=== PATIENT | female | born 1950 | race Caucasian/White ===

== ENCOUNTER → 2023-07-16 | Emergency (ER) | payer OTHER ==
[~2023-07-16] MED LIST: NA CHLORIDE 0.9% 1,000 ML ONE; ONDANSETRON 4 MG (ODT) TAB ONE
--- OUTSIDE RECORDS SUMMARY | 2023-07-16 20:54 | XMS REPORT | Clinical Summary ---
Author Name Unknown Organization [facility] Address [address] [place] [address] Care Team Providers Care Mica Paster Name Role Phone Jaden Jay MD Primary Care Provider Jose Chatman MD Unavailable [phone] Phong Leiva MD Unavailable [phone] Saran Phillips MD Unavailable Juan Huerta MD Unavailable Juan Garcia MD Unavailable [phone] Allergies Active Allergy Reactions Criticality Noted Date Comments Sulfamethoxazole-Trime thoprim Diarrhea,GI Intolerance 08/09/2018 Prednisone Other (See Comments) 08/09/2018 Hallucinations Medications Medication Sig Dispensed Refills Start Date End Date Status clopidogrel (PLAVIX) 75 mg tablet Take 1 tablet (75 mg) by mouth daily. For stent placement. 0 7 Active metoprolol succinate (TOPROL XL) 25 mg 24 hr tablet Take 1 tablet (25 mg) by mouth daily. For hypertension. 0 7 Active atorvastatin (LIPITOR) 80 mg tabletIndications:hy percholesterolemia Take 1 tablet (80 mg) by mouth at bedtime. For high cholesterol. 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 60 tablet 5 7 Active ezetimibe (ZETIA) 10 mg tabletIndications:hy percholesterolemia Take 1 tablet (10 mg) by mouth daily. 90 tablet 0 7 Active aspirin 81 mg chewable tablet Chew 1 tablet (81 mg) daily. 0 Active calcium carbonate/vitamin D3 (CALCIUM 600 + D,3, ORAL) Take 1 tablet by mouth daily. 1 tablet = calcium 600 mg + D3 500 units 0 Active cholecalciferol, vitamin D3, (VITAMIN D3) 5,000 units tab tablet Take 1 tablet (5,000 Units) by mouth daily. 0 Active hydroxyzine HCl (ATARAX) 10 mg tablet as needed. 0 2 Active isosorbide mononitrate (IMDUR) 30 mg 24 hr tablet daily. 0 2 Active tiZANidine (ZANAFLEX) 4 mg tablet as needed. 0 2 Active nitroglycerin (NITROSTAT) 0.4 mg SL tablet as needed. 0 1 Active FLUoxetine (PROzac) 20 mg capsule Take 1 capsule (20 mg) by mouth daily. 0 Active spironolactone (ALDACTONE) 25 mg tablet TAKE ONE (1) TABLET(S) BY MOUTH DAILY WITH FOOD NEEDED. 0 2 Active Promacta 25 mg tabletIndications:Im mune thrombocytopenic purpura Take 1 tablet (25 mg) by mouth every other day. TAKE 1 TABLET ON AN EMPTY STOMACH 1 HOUR BEFORE OR 2 HOURS AFTER MEAL. 90 tablet 3 3 Active eltrombopag (Promacta) 25 mg tabletIndications:Im mune thrombocytopenic purpura Take 1 tablet (25 mg) by mouth every other day. Administer on an empty stomach, 1 hour before or 2 hours after a meal. 90 tablet 3 3 Active levothyroxine (SYNTHROID, LEVOTHROID) 50 mcg tabletIndications:Ot her specified hypothyroidism TAKE ONE (1) TABLET(S) BY MOUTH ONCE A DAY. 90 tablet 0 3 Active gabapentin (NEURONTIN) 600 mg tablet Take 600 mg by mouth daily as needed (nerve pain). 0 023 Discontinued( erapy completed) LORazepam (ATIVAN) 0.5 mg tabletIndications:Di ffuse large B-cell lymphoma of lymph nodes of multiple sites Take 1 tablet (0.5 mg) by mouth nightly as needed for anxiety or sedation. 30 tablet 1 7 023 Discontinued( erapy completed) DULoxetine (CYMBALTA) 30 mg capsule Take 1 capsule by mouth daily. 0 0 023 Discontinued( erapy completed) Promacta 25 mg tabletIndications:Im mune thrombocytopenic purpura TAKE 1 TABLET DAILY ON AN EMPTY STOMACH 1 HOUR BEFORE OR 2 HOURS AFTER MEAL. 90 tablet 1 1 023 Discontinued(Re order) levothyroxine (SYNTHROID, LEVOTHROID) 50 mcg tabletIndications:Ot her specified hypothyroidism TAKE ONE (1) TABLET(S) BY MOUTH ONCE A DAY. 90 tablet 3 2 023 Discontinued potassium chloride (KLOR-CON) 10 mEq CR tablet daily. 0 2 023 Discontinued( erapy completed) Promacta 25 mg tabletIndications:Im mune thrombocytopenic purpura TAKE 1 TABLET DAILY ON AN EMPTY STOMACH 1 HOUR BEFORE OR 2 HOURS AFTER MEAL. 90 tablet 3 3 023 Discontinued(Re order) Promacta 25 mg tabletIndications:Im mune thrombocytopenic purpura TAKE 1 TABLET DAILY ON AN EMPTY STOMACH 1 HOUR BEFORE OR 2 HOURS AFTER MEAL. 90 tablet 3 3 023 Discontinued(Re order) Promacta 25 mg tabletIndications:Im mune thrombocytopenic purpura Take 1 tablet (25 mg) by mouth every other day. TAKE 1 TABLET ON AN EMPTY STOMACH 1 HOUR BEFORE OR 2 HOURS AFTER MEAL. 90 tablet 3 3 023 Discontinued(Re order) Promacta 25 mg tabletIndications:Im mune thrombocytopenic purpura Take 1 tablet (25 mg) by mouth every other day. TAKE 1 TABLET ON AN EMPTY STOMACH 1 HOUR BEFORE OR 2 HOURS AFTER MEAL. 90 tablet 3 3 023 Discontinued(Re order) levothyroxine (SYNTHROID, LEVOTHROID) 50 mcg tabletIndications:Ot her specified hypothyroidism TAKE ONE (1) TABLET(S) BY MOUTH ONCE A DAY. 90 tablet 1 3 023 Discontinued Active Problems Problem Noted Date Diagnosed Date Osteoporosis 06/23/2020 Coronary arteriosclerosis 02/05/2019 Immune thrombocytopenic purpura 08/09/2018 Thyroid nodule 09/06/2017 Hypothyroidism 09/06/2017 Non-diabetic hyperglycemia 09/06/2017 Mixed hyperlipidemia 10/07/2016 Insomnia due to medical condition 10/07/2016 Essential hypertension 10/07/2016 Thrombocytopenia 08/21/2016 Enterocolitis due to Clostridium difficile 08/20 Diffuse large B-cell lymphom a of lymph nodes of multiple sites 07/31/2016 Encounters Date Type Department Care Team Description 04/19/2023 Telephone [facility] [address] [place] [address], 6th [place] [address] Wendi Pierre APRN 04/18/2023 Orders Only Endocrine [facility] [address] [place] [address], [facility] [place] [address] Wendi Pierre, LEV Other specified hypothyroidism (Primary Dx) 04/15/2023 Refill [facility] [address] [place] [address], 6th [place] [address] Tea Rizvi APRN Other specified hypothyroidism 01/26/2023 Documentation [facility] - Hematology [address] [place] [address], 6th [place] [address] Sandra Garcia APRN 10/25/2022 4:30 PM CDT Telemedicine [facility] [address] [place] [address], 6th [place] [address] Sandra Garcia APRN Immune thrombocytopenic purpura (Primary Dx) 10/20/2022 Refill [facility] [address] [place] [address], 6th [place] [address] Rodolfo Rojas APRN Other specified hypothyroidism 10/12/2022 Documentation [facility] [address] [place] [address], 6th [place] [address] Sandra Garcia, MANDATE RETAIL SERVICE MERCHANDISER 09/29/2022 Documentation [facility] [address] [place] [address], 6th [place] [address] Sandra Garcia, MANDATE RETAIL SERVICE MERCHANDISER 09/26/2022 Documentation [facility] [address] [place] [address], 6th [place] [address] Sandra Garcia, MANDATE RETAIL SERVICE MERCHANDISER 08/25/2022 Documentation [facility] [address] [place] [address], 6th [place] [address] Sandra Garcia, MANDATE RETAIL SERVICE MERCHANDISER 08/25/2022 Orders Only [facility] H[facility]ology [address] [place] [address], [facility] [place] [address] Sandra Garcia APRN Immune thrombocytopenic purpura (Primary Dx) 08/21/2022 Refill [facility] Rheumatology [address] [place] [address], [facility] [place] [address] Isael Vega RN Immune thrombocytopenic purpura 08/17/2022 12:00 PM VIDEO GAME CREATOR Telemedicine [facility] [address] [place] [address], [facility] [place] [address] Sandra Garcia APRN Immune thrombocytopenic purpura (Primary Dx) 08/17/2022 Orders Only [facility] [address] [place] [address], [facility] [place] [address] Sandra Garcia APRN Immune thrombocytopenic purpura (Primary Dx) 08/15/2022 Refill [facility] [address] [place] [address], [facility] [place] [address] Anne De León, LARON Immune thrombocytopenic purpura 08/04/2022 10:30 AM VIDEO GAME CREATOR Follow[facility]Up [facility] [address] [place] [address], [address] [place] [id number] Jaden Jay MD 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 08/04/2022 Travel 08/03/2022 1:20 PM VIDEO GAME CREATOR Ancillary Procedure [facility] [address] [facility], 2nd [place] [address] Jaden Jay MD 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 08/03/2022 10:40 AM VIDEO GAME CREATOR Ancillary Procedure CT Imaging [address] [facility], 7th [place] [address] Jaden Jay MD 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 08/03/2022 10:00 AM VIDEO GAME CREATOR - 08/03/2022 11:59 PM VIDEO GAME CREATOR Hospital Encounter [facility] [address] [place] [address] Jaden Jay MD 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 Discharge Disposition: Home 08/03/2022 Travel 07/26/2022 Orders Only [facility] - Hematology [address] [place] [address], 6th [place] [address] Juan Garcia MD Immune thrombocytopenic purpura after 07/16/2022 Surgical History Surgery Date Site/Laterality Comments CHOLECYSTECTOMY PARTIAL HYSTERECTOMY CORONARY ANGIOPLASTY WITH STENT PLACEMENT VA SIGMOIDOSCOPY FLX W/BIOPS Y SINGLE/MULTIPLE 08/22/2016 Anus/N/A Procedure: FLEXIBLE SIGMOIDOSCOPY WITH BIOPSY; Surgeon: Dorita Lauren MD; Location: MAIN ENDOSCOPY; Service: GASTROENTEROLOGY Medical History Medical History Date Comments Coronary artery disease due to calcified coronar y lesion Hypertension Hypothyroidism Psoriasis 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 07/31/2016 Mitral valve prolapse Steatosis of liver Family History Medical History Relation Name Comments Pancreatic cancer Father Heart failure Mother Throat cancer Paternal Aunt Lung cancer Paternal Uncle Breast cancer Sister Relation Name Status Comments Father Mother Paternal Aunt Paternal Uncle Sister Social History Tobacco Use Types Packs/Day Years Used Date Smoking Tobacco: Former Cigarettes 1 35 Q uit: 2005 Smokeless Tobacco: Never Alcohol Use Standard Drinks/Week Comments No 0 (1 standard drink = 0.6 oz pur e alcohol) Sex and Gender Information Value Date Recorded Sex Assigned at Female 01/05/2021 1:15 PM CDT Gender Identity Not on file Sexual Orientation Straight 01/05/2021 1: 15 PM CDT Job Start Date Occupation Industry Not on file Not on file Not on file Obstetrics History Para Term AB IAB SAB Ectopic Multiple Livin g Live Births 3 3 3 3 Date Outcome GA Total Labor Labor/2nd/3rd Weight Sex Delivery Anes PTL Ruchi A1 A5 Name Cl in Term Term Term Last Filed Vital Signs Vital Sign Reading Time Taken Comments Blood Pressure 137/65 08/04/2022 10:34 AM VIDEO GAME CREATOR Pulse 70 08/04/2022 10:34 AM VIDEO GAME CREATOR Temperature 36.8 C (98.2 F) 08/04/2022 10:[address] Respiratory Rate 16 08/04/2022 10:34 AM VIDEO GAME CREATOR Oxygen Saturation 100% 08/04/2022 10:34 AM VIDEO GAME CREATOR Inhaled Oxygen Concentration - - Weight 56.8 kg (125 lb 3.5 oz) 08/04/2022 10:28 AM VIDEO GAME CREATOR Height - - Body Mass Index 23.19 09/29/2019 2:16 PM CDT Plan of Treatment Upcoming Encounters Date Type Department Care Team Description 08/03/2023 8:45 AM VIDEO GAME CREATOR Appointment [facility] [address] [place] [address] aJz Pitts PA [address] [place] [address] 08/03/2023 9:05 AM VIDEO GAME CREATOR Ancillary Procedure [facility] [address] [place] [address], 2nd [place] [address] Jaz Pitts PA [facility] [place] [address] 08/03/2023 11:00 AM VIDEO GAME CREATOR Ancillary Procedure Diagnostic Center [address] [place] [address], 2nd [place] [address] Jaz Pitts PA [address] [place] [address] 08/07/2023 9:30 AM VIDEO GAME CREATOR Consult MD [facility] [id number] [facility] 3rd Floor [place], [place] [id number] Jaz Pitts PA [address] [place] [address] Health Maintenance Due Date Last Done Comments COVID-19 Vaccination (#1) 1950 Medical Devices Implanted Type Area Barbed Wire Machine Operator Device Identifier Shelf Expiration Date Model / Serial / Lot Stent Procedures Procedure Name Priority Date/Time Associated Diagnosis Comments MAMMO DIGITAL SCREENING BILATERAL Routine 08/03/2022 1:03 PM VIDEO GAME CREATOR 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 CT CHEST ABDOMEN PELVIS W CONTRAST LYMPHOMA Routine 08/03/2022 11:32 AM VIDEO GAME CREATOR 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 CT NECK W CONTRAST LYMPHOMA Routine 08/03/2022 11:32 AM VIDEO GAME CREATOR 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 TMP INTERPRETATION ANTIBODY SCREEN NEGATIVE Routine 08/03/2022 10:22 AM VIDEO GAME CREATOR CLOT EXPIRATION DATE Routine 08/03/2022 10:22 AM VIDEO GAME CREATOR ANTIBODY SCREEN Routine 08/03/2022 10:22 AM VIDEO GAME CREATOR 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 ABORH Routine 08/03/2022 10:22 AM VIDEO GAME CREATOR 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 .GLOMERULAR FILTRATION RATE Routine 08/03/2022 10:22 AM VIDEO GAME CREATOR 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 SERUM CREATININE Routine 08/03/2022 10:2 2 AM VIDEO GAME CREATOR 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 DIFFERENTIAL Routine 08/03/2022 10:22 AM VIDEO GAME CREATOR 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 .CBC Routine 08/03/2022 10:22 AM VIDEO GAME CREATOR 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 THYROID STIMULATING HORMONE Routine 08/03/2022 10:22 AM VIDEO GAME CREATOR 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 FREE THYROXINE Routine 08/03/2022 10:22 AM VIDEO GAME CREATOR 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 VITAMIN D 25 HYDROXY LEVEL Routine 08/03/2022 10:22 AM VIDEO GAME CREATOR 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 ELECTROLYTE PANEL Routine 08/03/2022 10: 22 AM VIDEO GAME CREATOR 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 ASPARTATE AMINOTRANSFERASE Routine 08/03/2022 10:22 AM VIDEO GAME CREATOR 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 MAGNESIUM LEVEL Routine 08/03/2022 10:22 AM VIDEO GAME CREATOR 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 ALANINE AMINOTRANSFERASE Routine 023 10:22 AM VIDEO GAME CREATOR 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 LACTATE DEHYDROGENASE Routine 08/03/2022 10:22 AM VIDEO GAME CREATOR 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 ALKALINE PHOSPHATASE Routine 08/03/2022 10:22 AM VIDEO GAME CREATOR 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 FRACTIONATED BILIRUBIN Routine 10:22 AM VIDEO GAME CREATOR 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 URIC ACID Routine 08/03/2022 10:22 AM VIDEO GAME CREATOR 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 CREATININE Routine 08/03/2022 10:22 AM VIDEO GAME CREATOR 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 BLOOD UREA NITROGEN Routine 08/03/2022 1 0:22 AM VIDEO GAME CREATOR 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 GLUCOSE, RANDOM Routine 08/03/2022 10:22 AM VIDEO GAME CREATOR 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 PHOSPHORUS LEVEL Routine 08/03/2022 10:2 2 AM VIDEO GAME CREATOR 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 CALCIUM LEVEL Routine 08/03/2022 10:22 AM VIDEO GAME CREATOR 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 ALBUMIN LEVEL Routine 08/03/2022 10:22 AM VIDEO GAME CREATOR 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 TOTAL PROTEIN Routine 08/03/2022 10:22 AM VIDEO GAME CREATOR 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 Follow-up mammogram in 1 year is recommended. BI-RADS Category 1: Negative Narrative 08/14/2022 1:44 PM VIDEO GAME CREATOR CLINICAL INDICATION: Patient is a 72 year old female and is seen for screening. MAMMO DIGITAL SCREENING BILATERAL Digital Mammogram evaluated with Computer Aided Detection (CAD). COMPARISON: No prior imaging studies are available for comparison. FINDINGS: The breasts are almost entirely fatty. No dominant mass, distortion, or suspicious calcifications are identified. Procedure Note Marianne Carolina MD - 08/14/2022 CLINICAL INDICATION: Patient is a 72 year old female and is seen for screening. MAMMO DIGITAL SCREENING BILATERAL Digital Mammogram evaluated with Computer Aided Detection (CAD). COMPARISON: No prior imaging studies are available for comparison. FINDINGS: The breasts are almost entirely fatty. No dominant mass, distortion, or suspicious calcifications areidentified. IMPRESSION: There is no mammographic evidence of malignancy. Follow-up mammogram in 1 year is recommended. BI-RADS Category 1: Negative Jaden Jay MD IMG MAMMOGRAPHY [facility] * CT Chest Abdomen Pelvis with Contrast Lymphoma (08/03/2022 11:32 AM VIDEO GAME CREATOR) Anatomical Region Laterality Modality Chest, Abdomen, Pelvis Computed Tomography 08/03/2022 12:3 0 PM VIDEO GAME CREATOR Impressions 08/03/2022 12:53 PM VIDEO GAME CREATOR No new progressive lymphadenopathy identified in the chest, abdomen or pelvis. Heavily calcified coronary arteries and severe atherosclerosis of the aorta and branch vessels. 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 Findings: Chest: Lungs appear stable in comparison to prior study no suspicious new pulmonary nodules atelectasis lung bases. Stable scattered punctate pulmonary nodules series 303 image 84. Atelectasis lung bases. No significant new mediastinal, hilar or axillary lymphadenopathy. Heavily calcified coronary arteries. Abdomen pelvis: Stable appearance of the liver, no suspicious new focal liver lesions. Mild and hepatic bile duct dilation gallbladder is surgically absent. The pancreas, spleen, bilateral adrenal glands and kidneys are unremarkable no hydronephrosis. No significant mesenteric or retroperitoneal lymphadenopathy. Severe atherosclerosis of the aorta and branch vessels. No significant pelvic or inguinal lymphadenopathy. Uterus is surgically absent. No evidence of bowel obstruction. No suspicious new osseous lesions. Stable mild vertebral body compression deformity lower thoracic spine. Procedure Note Jorge Dhillon MD - 08/03/2022 Examination: CT CHEST ABDOMEN PELVIS W CONTRAST LYMPHOMA, 08/03/2022 11:32AM Clinical History: Diffuse large B-cell lymphoma of lymph nodes of multiplesites Indication: restaging for lymphoma Comparison: 08/04/2021 Technique: CT of the chest, abdomen, and pelvis was performed withintravenous contrast. Findings: Chest: Lungs appear stable in comparison to prior study no suspicious newpulmonary nodules atelectasis lung bases. Stable scattered punctate pulmonary nodules series 303 image 84. Atelectasis lung bases. No significant new mediastinal, hilar or axillary lymphadenopathy. Heavily calcified coronary arteries. Abdomen pelvis: Stable appearance of the liver, no suspicious new focal liver lesions.Mild and hepatic bile duct dilation gallbladder is surgically absent. Thepancreas, spleen, bilateral adrenal glands and kidneys are unremarkable nohydronephrosis. No significant mesenteric or retroperitoneal lymphadenopathy. Severe atherosclerosis of the aorta and branch vessels. No significant pelvic or inguinal lymphadenopathy. Uterus is surgically absent. No evidence of bowel obstruction. No suspicious new osseous lesions.Stable mild vertebral body compression deformity lower thoracic spine. IMPRESSION: No new progressive lymphadenopathy identified in the chest, abdomen orpelvis. Heavily calcified coronary arteries and severe atherosclerosis of theaorta and branch vessels. Jaden Jay MD [facility] CT ORDERABLES * CT Neck with Contrast Lymphoma (08/03/2022 11:32 AM VIDEO GAME CREATOR) Anatomical Region Laterality Modality Neck Computed Tomogra phy 08/03/2022 12:1 0 PM VIDEO GAME CREATOR Impressions 08/03/2022 12:13 PM VIDEO GAME CREATOR No cervical lymphadenopathy. 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 Technique: CT of the Neck with Contrast. Findings: Please see the separately dictated report on the CT of the chest for upper thorax findings. There is no cervical lymphadenopathy. The visualized intracranial structures are without gross abnormality. The paranasal sinuses are unremarkable. There are mild calcified atherosclerotic changes involving the carotid bifurcations. There are multilevel degenerative changes of the visualized spine. Procedure Note Timothy Joseph MD - 08/03/2022 FULL RESULT: Examination: CT NECK W CONTRAST LYMPHOMA on 08/03/2022 11:32 AM Clinical History: Diffuse large B-cell lymphoma of lymph nodes of multiplesites Indication: restaging scans Comparison: CT neck August 04, 2021. Technique: CT of the Neck with Contrast. Findings: Please see the separately dictated report on the CT of the chest for upperthorax findings. There is no cervical lymphadenopathy. The visualized intracranial structures are without gross abnormality. The paranasal sinuses are unremarkable. There are mild calcified atherosclerotic changes involving the carotidbifurcations. There are multilevel degenerative changes of the visualized spine. IMPRESSION: No cervical lymphadenopathy. Jaden Jay MD IMG CT ORDERABLES * Glucose, Random (08/03/2022 10:22 AM VIDEO GAME CREATOR) Glucose Random 110 70 - 199 mg/dL [facility] Comment: Effective 02/16/16, the glucose reference intervals have been updated based on [place] [employer] guidelines (Standards of Medical Care in Diabetes 2016. Diabetes Care 2016; 39: S13-S22) Fasting blood glucose: Normal: 70-99 mg/dL Impaired fasting glucose (increased risk for diabetes or pre-diabetes): 100-125 mg/dL Diabetes mellitus: >/= 126 mg/dL Random blood glucose: Normal: 70-199 mg/dL Note: Random glucose >100 mg/dL is associated with increased risk for diabetes Testing Performed at [facility], [address] [place] [address], [address], [place] [address] Blood 08/03/2022 10:2 2 AM VIDEO GAME CREATOR 08/03/2022 10:33 AM VIDEO GAME CREATOR Narrative [facility] - 08/03/2022 11:03 AM VIDEO GAME CREATOR Coming from out of town - please try to bundle appts Jaden Jay MD LAB BLOOD ORDERABLES [address] [place] [address] * (ABNORMAL) .Serum Creatinine (08/03/2022 10:22 AM VIDEO GAME CREATOR) Creatinine 1.11(H) 0.51 - 0.95 mg/dL [facility] Comment:Testing Performed at [facility], [address] [place] [address], [address], [place] [address] Blood 08/03/2022 10:2 2 AM VIDEO GAME CREATOR 08/03/2022 10:33 AM VIDEO GAME CREATOR Narrative [facility] - 08/03/2022 11:03 AM VIDEO GAME CREATOR Coming from out of town - please try to bundle appts Jaden Jay MD LAB BLOOD ORDERABLES [facility] [address] [place] [address]. [address] [place] [address] * .CBC (08/03/2022 10:22 AM VIDEO GAME CREATOR) [facility] WBC 8.0 4.0 - 11.0 K/uL [facility] RBC 4.25 4.00 - 5.50 M/uL [facility] Hgb 12.4 12.0 - 16.0 gm/dL [facility] Comment:As part of CBC or as an individual orderable testing performed at [facility] Domestic [employer] [facility], [address] [place] [address], [address], [place] [address] Hct 38.6 37.0 - 47.0 % [facility] Comment:As part of CBC or as an individual orderable testing performed at [facility], [address] [place] [address], [address], [place] [address] MCV 91 82 - 98 fL [facility] MCH 29.2 27.0 - 31.0 pg [facility] MCHC 32.1 31.0 - 36.0 gm/dL [facility] RDW-SD 46.1 35.1 - 46.3 fL [facility] RDW-CV 13.9 12.0 - 15.5 % [facility] Platelet count 255 140 - 440 K/uL [facility] Comment:As part of CBC or as an individual orderable testing performed at [facility] Domestic [employer] [facility], [facility], [address], [place] [address] MPV 9.3 4.0 - 10.4 fL [facility] INRBC 0.0 <=0.0 % [facility] Comment: The INRBC (instrument NRBC) value reflects the enumeration of nucleated red blood cells contained in a 200uL sample of whole blood analyzed by the instrument. This value may differ from the NRBC value reported in a manual differential, which is based on a 100 cell differential. As part of CBC testing performed at [facility] Lab [employer] [address] [facility], [address], [place] [address] Blood 08/03/2022 10:2 2 AM VIDEO GAME CREATOR 08/03/2022 10:30 AM VIDEO GAME CREATOR Narrative [facility] - 08/03/2022 10:36 AM VIDEO GAME CREATOR Coming from out of town - please try to bundle appts Jaden Jay MD LAB BLOOD ORDERABLES [facility] [address] [facility] [place] [address] * Clot Expiration Date (08/03/2022 10:22 AM VIDEO GAME CREATOR) T & S Expiration 08/06/2022 [facility] Blood 08/03/2022 10:2 2 AM VIDEO GAME CREATOR 08/03/2022 11:19 AM VIDEO GAME CREATOR Jaden Jay MD BLOOD BANK TEST ORDE RABLES [facility] Unless otherwise noted, all lab tests performed by: Division of Pathology and Laboratory Medicine [facility] [place] [address] * (ABNORMAL) Glomerular Filtration Rate (08/03/2022 10:22 AM VIDEO GAME CREATOR) eGFR 53(L) >=60 mL/min/1.7 3 sq. m [facility] Comment: The eGFRcr is calculated with the 2020 CKD-EPI creatinine equation using creatinine, patient's age, and sex for adults 18 years of age and older. Other factors, especially muscle mass, may affect accuracy and need to be considered. According to the Kidney Disease: Improving Global Outcomes (KDIGO) CKD Work Group 2012 Clinical Practice Guideline, chronic kidney disease (CKD) is defined as the abnormalities of kidney structure or function, present for more than 3 months, with implications for health. CKD should be classified by cause, GFR category, and albuminuria category. KDIGO guidelines provide the following GFR categories Stage Description GFR mL/min/1.73 m2 G1* Normal or high >= 90 G2* Mildly decreased 60-89 G3a Mildly to moderately decreased 45-59 G3b Moderately to severely decreased 30-44 G4 Severely decreased 15-29 G5 Kidney failure <15 *In the absence of evidence of kidney damage, neither G1 nor G2 fulfill criteria for CKD. Testing Performed at [facility], [address] [place] [address], [address], [place] [address] Blood 08/03/2022 10:2 2 AM VIDEO GAME CREATOR 08/03/2022 10:33 AM VIDEO GAME CREATOR Narrative [facility] - 08/03/2022 11:03 AM VIDEO GAME CREATOR Coming from out of town - please try to bundle appts Jaden Jay MD LAB BLOOD ORDERABLES [address] [place] [address] * Fractionated Bilirubin (08/03/2022 10:22 AM VIDEO GAME CREATOR) [facility] Bili Total 0.6 <=1.2 mg/dL [facility] Comment: Indocyanine Green (ICG) may cause falsely elevated bilirubin results. Total and direct bilirubin must not be measured from samples containing indocyanine green. False elevation of total bilirubin can be seen in patients with IgG concentrations above 28 g/L. Testing Performed at [facility], [address] [place] [address], [address], [place] [address] Bili Direct <0.2 <=0.3 mg/dL [facility] Comment: Indocyanine Green (ICG) may cause falsely elevated bilirubin results. Total and direct bilirubin must not be measured from samples containing indocyanine green. Testing Performed at [facility], [address] [place] [address], [address], [place] [address] Bili Indirect See Note 0.0 - 0.9 mg/dL [facility] Comment: Unable to calculate Indirect Bilirubin result due to some parameters are outside reportable range Testing Performed at [facility], [address] [place] [address], [address], [place] [address] Blood 08/03/2022 10:2 2 AM VIDEO GAME CREATOR 08/03/2022 10:33 AM VIDEO GAME CREATOR Narrative [facility] - 08/03/2022 11:03 AM VIDEO GAME CREATOR Coming from out of town - please try to bundle appts Jaden Jay MD LAB BLOOD ORDERABLES Performing Organization Address City/[facility]/ZIP Co de Phone Number [facility] [address] [facility] [place] [address] * TMP Interpretation Antibody Screen Negative (08/03/2022 10:22 AM VIDEO GAME CREATOR) TMP Auto Neg ABSC Interp At the present time, patient plasma shows no evidence of RBC alloantibodi es. [facility] Comment: IDANIA OJEDA MD - [id number] Dictated by: MD Johan VILLALBA [id number] Dictated Date/Time: 08.04.2022 10:10 AM VIDEO GAME CREATOR Transcribed Date/Time: 08.04.2022 10:10 AM VIDEO GAME CREATOR Electronically Signed By: IDANIA OJEDA MD - [id number] on 08.04.2022 10:10 AM Blood 08/03/2022 10:2 2 AM VIDEO GAME CREATOR 08/03/2022 11:19 AM VIDEO GAME CREATOR Jaden Jay MD BLOOD BANK TEST ORDTacos PRADHAN [facility] Unless otherwise noted, all lab tests performed by: Division of Pathology and Laboratory Medicine [address] [place] [id number] * ABORh (08/03/2022 10:22 AM VIDEO GAME CREATOR) Pathologist [facility] ABORh. A POS AL MD FORDE [facility] Blood 08/03/2022 10:2 2 AM VIDEO GAME CREATOR 08/03/2022 11:19 AM VIDEO GAME CREATOR Narrative [facility] - 08/03/2022 2:25 PM VIDEO GAME CREATOR Coming from out of town - please try to bundle appts Jaden Jay MD BLOOD BANK TEST ORDE RABCIARA Performing Organization Address [facility] Co de Phone Number [facility] Unless otherwise noted, all lab tests performed by: Division of Pathology and Laboratory Medicine [address] [place] [address] * Vitamin D 25OH (08/03/2022 10:22 AM VIDEO GAME CREATOR) [facility] Vitamin D 25 OH 81 30 - 100 ng/mL [facility] Comment: Reference Range: Deficiency: <10 ng/mL Insufficiency: 10-29 ng/mL Sufficiency: 30-100 ng/mL Potential toxicity: >100 ng/mL Blood 08/03/2022 10:2 2 AM VIDEO GAME CREATOR 08/03/2022 11:48 AM VIDEO GAME CREATOR Narrative [facility] - 08/03/2022 12:32 PM VIDEO GAME CREATOR Coming from out of town - please try to bundle appts Jaden Jay MD LAB BLOOD ORDERABLES Performing Organization Address [facility] Co de Phone Number [facility] Unless otherwise noted, all lab tests performed by: Division of Pathology and Laboratory Medicine [address] [place] [address] * Differential (08/03/2022 10:22 AM VIDEO GAME CREATOR) [facility] Neutrophil % 62.1 42.0 - 66.0 % [facility] Comment:As part of Different ial performed at [facility], [address] [place] [address], [address], [place] [address] Lymphocyte % 27.4 24.0 - 44.0 % [facility] Monocyte % 6.9 2.0 - 7.0 % [facility] Eosinophil % 2.6 1.0 - 4.0 % [facility] Basophil % 0.6 0.0 - 1.0 % [facility] IGRE % 0.4 0.0 - 0.4 % [facility] Comment: IGRE % count includes Metamyelocytes, Myelocytes, and Promyelocytes. As part of Differential performed at [facility], [address] [place] [address], [address], [place] [address] Neutrophil Abs 4.94 1.70 - 7.30 K/uL [facility] Lymphocyte Abs 2.18 1.00 - 4.80 K/uL [facility] Monocyte Abs 0.55 0.08 - 0.70 K/uL [facility] Eosinophil Abs 0.21 0.04 - 0.40 K/uL [facility] Basophil Abs 0.05 0.00 - 0.10 K/uL [facility] IG Abs 0.03 0.00 - 0.04 K/uL [facility] Blood 08/03/2022 10:2 2 AM VIDEO GAME CREATOR 08/03/2022 10:30 AM VIDEO GAME CREATOR Narrative [facility] - 08/03/2022 10:36 AM VIDEO GAME CREATOR Coming from out of town - please try to bundle appts Jaden Jay MD LAB BLOOD ORDERABLES [address] [place] [address] * Antibody Screen (08/03/2022 10:22 AM VIDEO GAME CREATOR) Pathologist [facility] ABSC. Negative ABSC [facility] Blood 08/03/2022 10:2 2 AM VIDEO GAME CREATOR 08/03/2022 11:19 AM VIDEO GAME CREATOR Narrative [facility] - 08/03/2022 2:25 PM VIDEO GAME CREATOR Coming from out of town - please try to bundle appts Jaden Jay MD BLOOD BANK TEST ORDE RABLES [facility] Unless otherwise noted, all lab tests performed by: Division of Pathology and Laboratory Medicine [address] [place] [id number] * (ABNORMAL) Uric Acid (08/03/2022 10:22 AM VIDEO GAME CREATOR) Uric Acid 6.9(H) 2.4 - 5.7 mg/dL [facility] Comment:Testing Performed at [facility] Lab Domestic [employer]er Bldg, [address] [facility], [address], [place] [address] Blood 08/03/2022 10:2 2 AM VIDEO GAME CREATOR 08/03/2022 10:33 AM VIDEO GAME CREATOR Narrative [facility] - 08/03/2022 11:03 AM VIDEO GAME CREATOR Coming from out of town - please try to bundle appts Jaden Jay MD LAB BLOOD ORDERABLES [facility] [address] [place] [address]. [address] [place] [address] * BUN (08/03/2022 10:22 AM VIDEO GAME CREATOR) BUN 18 6 - 23 mg/dL [facility] Comment:Testing Performed at [facility] Lab Domestic [employer] [facility], [address] [place] [address], [address], [place] [address] Blood 08/03/2022 10:2 2 AM VIDEO GAME CREATOR 08/03/2022 10:33 AM VIDEO GAME CREATOR Narrative [facility] - 08/03/2022 11:03 AM VIDEO GAME CREATOR Coming from out of town - please try to bundle appts Jaden Jay MD LAB BLOOD ORDERABLES Performing Organization Address City/[facility]/ZIP Co de Phone Number [facility] [address] [place] [address]. [address] [place] [address] * Alanine Aminotransferase (08/03/2022 10:22 AM VIDEO GAME CREATOR) ALT 28 <=33 U/L [facility] Comment:Testing Performed at [facility] Lab Domestic [employer]er [facility], [address] [place] [address], [address], [place] [address] Blood 08/03/2022 10:2 2 AM VIDEO GAME CREATOR 08/03/2022 10:33 AM VIDEO GAME CREATOR Narrative [facility] - 08/03/2022 11:03 AM VIDEO GAME CREATOR Coming from out of town - please try to bundle appts Jaden Jay MD LAB BLOOD ORDERABLES [facility] [address] [place] [address]. [address] [place] [address] * Aspartate Aminotransferase (08/03/2022 10:22 AM VIDEO GAME CREATOR) AST 26 <=32 U/L [facility] Comment:Testing Performed at [facility] Domestic Fre[employer]er [facility], [address] [place] [address], [address], [place] [address] Blood 08/03/2022 10:2 2 AM VIDEO GAME CREATOR 08/03/2022 10:33 AM VIDEO GAME CREATOR Narrative [facility] - 08/03/2022 11:03 AM VIDEO GAME CREATOR Coming from out of town - please try to bundle appts Jaden Jay MD LAB BLOOD ORDERABLES [facility] [address] [place] [address]. [address] [place] [address] * TSH (08/03/2022 10:22 AM VIDEO GAME CREATOR) TSH 2.66 0.27 - 4.20 mcunit/mL [facility] Comment: Note: New Methodology and Reference Range change effective 11/08/2017 at 1400 Testing Performed at [facility] Domestic [employer] [facility], [address] [place] [address], [address], [place] [address] Blood 08/03/2022 10:2 2 AM VIDEO GAME CREATOR 08/03/2022 10:33 AM VIDEO GAME CREATOR Narrative [facility] - 08/03/2022 11:22 AM VIDEO GAME CREATOR Coming from out of town - please try to bundle appts Jaden Jay MD LAB BLOOD ORDERABLES Performing Organization Address [facility]/ZIP Co de Phone Number [address] [place] [address] * Free T4 (08/03/2022 10:22 AM VIDEO GAME CREATOR) T4 Free 1.27 0.93 - 1.70 ng/dL [facility] Comment:Testing Performed at [facility] Domestic [employer] [facility], [address] [place] [address], [address], [place] [address] Blood 08/03/2022 10:2 2 AM VIDEO GAME CREATOR 08/03/2022 10:33 AM VIDEO GAME CREATOR Narrative [facility] - 08/03/2022 11:22 AM VIDEO GAME CREATOR Coming from out of town - please try to bundle appts Jaden Jay MD LAB BLOOD ORDERABLES [facility] [address] [place] [address]. [address] [place] [address] * Total Protein (08/03/2022 10:22 AM VIDEO GAME CREATOR) Total Protein 7.5 6.4 - 8.3 g/dL [facility] Comment:Testing Performed at [facility] Lab Domestic [employer] [facility], [address] [place] [address], [address], [place] [address] Blood 08/03/2022 10:2 2 AM VIDEO GAME CREATOR 08/03/2022 10:33 AM VIDEO GAME CREATOR Narrative [facility] - 08/03/2022 11:03 AM VIDEO GAME CREATOR Coming from out of town - please try to bundle appts Jaden Jay MD LAB BLOOD ORDERABLES [facility] [address] [place] [address]. [address] [place] [address] * Phosphorus Level (08/03/2022 10:22 AM VIDEO GAME CREATOR) Phosphorus 3.7 2.5 - 4.5 mg/dL [facility] Comment:Testing Performed at [facility] Domestic [employer]er [facility], [address] [place] [address], [address], [place] [address] Blood 08/03/2022 10:2 2 AM VIDEO GAME CREATOR 08/03/2022 10:33 AM VIDEO GAME CREATOR [facility] [place] - 08/03/2022 11:03 AM VIDEO GAME CREATOR Coming from out of town - please try to bundle appts Jaden Jay MD LAB BLOOD ORDERABLES [address] [place] [address] * Alkaline Phosphatase (08/03/2022 10:22 AM VIDEO GAME CREATOR) Alk Phos 80 35 - 104 U/L [facility] Comment:Testing Performed at [facility] Lab Domestic [employer] [facility], [address] [place] [address], [address], [place] [address] Blood 08/03/2022 10:2 2 AM VIDEO GAME CREATOR 08/03/2022 10:33 AM VIDEO GAME CREATOR Narrative [facility] - 08/03/2022 11:03 AM VIDEO GAME CREATOR Coming from out of town - please try to bundle appts Jaden Jay MD LAB BLOOD ORDERABLES Performing Organization Address City/[facility]/ZIP Co de Phone Number [facility] [address] [place] [address]. [address] [place] [address] * Magnesium Level (08/03/2022 10:22 AM VIDEO GAME CREATOR) Magnesium 2.0 1.6 - 2.6 mg/dL [facility] Comment:Testing Performed at [facility] Domestic Freight [employer]er Bldg, [address] [place] [address], [address], [place] [address] Blood 08/03/2022 10:2 2 AM VIDEO GAME CREATOR 08/03/2022 10:33 AM VIDEO GAME CREATOR Narrative [facility] - 08/03/2022 11:03 AM VIDEO GAME CREATOR Coming from out of town - please try to bundle appts Jaden Jay MD LAB BLOOD ORDERABLES Performing Organization Address [facility] Co de Phone Number [address] [place] [address] * (ABNORMAL) LDH (08/03/2022 10:22 AM VIDEO GAME CREATOR) Pathologist [facility] LDH 218(H) 135 - 214 U/L [facility] Comment: Results greater than 1651 U/L may not be reliable due to matrix effect with extended dilution as it exceeds the librarian special collections s recommended limit. Caution should be exercised when interpreting such values and done in conjunction with clinical context. Testing Performed at [facility] Domestic [employer] [facility], [address] [place] [address], [address], [place] [address] Blood 08/03/2022 10:2 2 AM VIDEO GAME CREATOR 08/03/2022 10:59 AM VIDEO GAME CREATOR Narrative [facility] - 08/03/2022 11:26 AM VIDEO GAME CREATOR Coming from out of town - please try to bundle appts Jaden Jay MD LAB BLOOD ORDERABLES Performing Organization Address City/[facility]/ZIP Co de Phone Number [address] [place] [address] * Calcium Level (08/03/2022 10:22 AM VIDEO GAME CREATOR) Calcium Lvl 10.1 8.4 - 10.2 mg/dL [facility] Comment:Testing Performed at [facility] Domestic [employer] [facility], [address] [facility], [address], [place] [address] Blood 08/03/2022 10:2 2 AM VIDEO GAME CREATOR 08/03/2022 10:33 AM VIDEO GAME CREATOR Narrative [facility] - 08/03/2022 11:03 AM VIDEO GAME CREATOR Coming from out of town - please try to bundle appts Jaden Jay MD LAB BLOOD ORDERABLES [facility] [address] [facility] [place] [address] * Albumin Level (08/03/2022 10:22 AM VIDEO GAME CREATOR) Albumin Lvl 4.6 3.5 - 5.2 gm/dL [facility] Comment:Testing Performed at [facility] Domestic Fre[employer]er [facility], [address] [facility], [address], [place] [address] Blood 08/03/2022 10:2 2 AM VIDEO GAME CREATOR 08/03/2022 10:33 AM VIDEO GAME CREATOR Narrative [facility] - 08/03/2022 11:03 AM VIDEO GAME CREATOR Coming from out of town - please try to bundle appts Jaden Jay MD LAB BLOOD ORDERABLES [facility] [address] [place] [address]. [address] [place] [address] * (ABNORMAL) Electrolyte Panel (08/03/2022 10:22 AM VIDEO GAME CREATOR) Sodium Lvl 140 136 - 145 mEq/L [facility] Comment:Testing Performed at [facility] Domestic [employer] [facility], [address] [facility], [address], [place] [address] Potassium Lvl 4.3 3.5 - 5.1 mEq/L [facility] Comment:Testing Performed at [facility] Domestic Fre[employer]er [facility], [address] [place] [address], [address], [place] [address] Chloride 109(H) 98 - 107 mEq/L [facility] Comment:Testing Performed at [facility] Domestic [employer] Bldg, [address], [address], [place] [address] CO2 22 22 - 29 mEq/L [facility] Comment:Testing Performed at [facility] Domestic [employer] Bldg, [address], [address], [place] [address] Anion Gap 9 4 - 14 mEq/L [facility] Comment:Testing Performed at [facility] Domestic [employer] Bldg, [address], [address], [place] [address] Blood 08/03/2022 10:2 2 AM VIDEO GAME CREATOR 08/03/2022 10:33 AM VIDEO GAME CREATOR Narrative [facility] - 08/03/2022 11:03 AM VIDEO GAME CREATOR Coming from out of town - please try to bundle appts Jaden Jay MD LAB BLOOD ORDERABLES [facility] [address] [facility] [place] [address] after 07/16/2022 Advance Directives Latest Code Status on File Code Status Date Activated Date Inactivated Comments Full Code 02/05/2019 9:09 PM 02/07/2019 5:41 PM Code Status History Code Status Date Activated Date Inactivated Comments Full Code 11/29/2016 7:38 PM 12/02/2016 11:28 AM Full Code 11/08/2016 9:51 AM 11/11/2016 5:44 PM Full Code 10/18/2016 11:16 AM 10/21/2016 1:39 AM Full Code 10/05/2016 9:09 PM 10/10/2016 3:58 PM Care Teams Mica Paster Relationship Specialty Start Date End Date Jaden Jay MD [address] [place] [id number] PCP - General Lymphoma and Myeloma 07/26/18 Jose Chatman MD [address] [facility] [address] [place] [address] PCP - External Follow Up A Cardiology 08/11/20 Phong Leiva MD [address] [place] [id number] PCP - External Referring Family Practice 08/11/20 Saran Phillips MD [address] [place] [id number] Consulting Physician Endocrinology 09/06/17 Juan Huerta MD [address] [place] [address] Consulting Physician Cardiology 07/18/16 Juan Garcia MD [address] [place] [id number] Consulting Physician Hematology 08/09/18
[2023-07-16 21:40] LABS: Absolute Lymphocytes (CBC) 1.7 K/uL (0.7-4.9); Hematocrit 34.7 % (36.0-45.0); Lymphocytes % 21.9 % (15.3-44.8); MCV 85.5 fL (80-100); MPV 7.2 fL (7.6-11.3); Platelets 149 thou/uL (152-406); RBC Red Blood Cell Count 4.06 M/uL (3.86-4.86)
[2023-07-16 21:55] LABS: Barbiturates NEGATIVE (NEGATIVE); Benzodiazepines NEGATIVE (NEGATIVE); Cocaine NEGATIVE (NEGATIVE); METHAMPHETAM NEGATIVE (NEGATIVE); Methadone NEGATIVE (NEGATIVE); Opiates NEGATIVE (NEGATIVE); Phencyclidine NEGATIVE (NEGATIVE); THC Cannibis POSITIVE (NEGATIVE)
[2023-07-16 22:03] LABS: ALT/SGPT 21 U/L (13-56); AST/SGOT 12 U/L (15-37); Albumin 3.1 g/dL (3.4-5.0); Alkaline Phosphatase 74 U/L (45-117); BUN Blood Urea Nitrogen 9 mg/dL (7-18); Bicarbonate 25 mEq/L (21-32); Bilirubin Total 0.4 mg/dL (0.2-1.0); Glomerular Filtration Rate 60 ml/min (=/>90); Glucose Level 126 mg/dL (74-106); NT PRO-BNP 226 pg/mL (<125); Potassium 3.1 mEq/L (3.5-5.1); Protein, Total 6.8 g/dL (6.4-8.2); Sodium Level 142 mEq/L (136-145); Troponin High Sensitivity 8.7 pg/mL (<58.9)
[2023-07-16 22:08] LABS: Bilirubin Direct < 0.1 mg/dL (0-0.2); Bilirubin Indirect, Calculated ND mg/dL (0.2-0.8)
--- NOTE | 2023-07-16 22:39 | RAD REPORT ---
EXAM DESCRIPTION: [facility] Single View07/16/2023 10:24 pm CLINICAL HISTORY: syncope COMPARISON: CHEST SINGLE VIEW dated 02/18/2013; CHEST SINGLE VIEW dated 05/17/2012; CHEST SINGLE VIEW dated 04/22/2006 TECHNIQUE: Portable AP view of the chest. FINDINGS: The lungs are clear. No pneumothorax or effusion. The cardiomediastinal contours are unre markable. IMPRESSION: No acute cardiopulmonary process.
[2023-07-16 22:45] LABS: Protime INR 1.07
--- NOTE | 2023-07-17 01:53 | EDPHYS ---
Physician Documentation [facility] Name: Kinsey Leung Age: 73 yrs Sex: Female : 1950 Arrival Date: 07/16/2023 Time: 20:51 Bed IW9 Private MD: ED Physician Leandro Perales HPI: 07/16 20:58 This 73 yrs old Female presents to ER via Unassigned with complaints of sp4 Altered Mental Status, Chest Pain. 21:11 73-year-old female presents with acute syncopal episode and chest pain after she sp4 consumed a gummy of Hemp with 200 mg extract of hemp, and had 2 small glasses of wine at home. Patient reportedly passed out at the dinner table and had an episode of vomiting is then patient was out for estimated 2-minute duration. Patient had to be awakened with a sternal rub. After that EMS was called by the family and patient was brought here. At this time patient reports no problems. Patient has extensive cardiac history with 7 coronary artery stents done at [facility] last stent reportedly around 2018. Patient's human resources support specialist Dr. Burciaga is of [facility]. Patient at this time takes Plavix 75 mg daily and aspirin 81 mg daily, also Lipitor, potassium supplement, magnesium supplement, metoprolol 25 mg twice daily, isosorbide daily. 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 . Historical: - Allergies: 20:59 No Known Allergies; me1 - PMHx: 20:59 GERD; High Cholesterol; Hypertension; me1 - PSHx: 20:59 Coronary Angioplasty; me1 - Immunization history:: Adult Immunizations up to date. - Social history:: Smoking status: Patient/guardian denies using tobacco, but has a distant history of tobacco abuse. - Family history:: not pertinent. ROS: 21:11 Constitutional: Negative for fever, chills, and weight loss, positive syncopal episode, sp4 positive for chest pain , positive vomiting 21:11 All other systems are negative, Exam: 21:11 Constitutional: This is a well developed, well nourished patient who is awake, alert, sp4 and in no acute distress. Head/Face: Normocephalic, atraumatic. Eyes: Pupils equal round and reactive to light, extra-ocular motions intact. Lids and lashes normal. Conjunctiva and sclera are not injected. Cornea within normal limits. Periorbital areas with no swelling, redness, or edema. ENT: Nares patent. No nasal discharge, no septal abnormalities noted. Tympanic membranes are normal and external auditory canals are clear. Oropharynx with no redness, swelling, or masses, exudates, or evidence of obstruction, uvula midline. Mucous membranes moist. Neck: Trachea midline, no thyromegaly or masses palpated, and no cervical lymphadenopathy. Supple, full range of motion without nuchal rigidity, or vertebral point tenderness. Chest/axilla: Normal chest wall appearance and motion. Nontender with no deformity. No lesions are appreciated. Cardiovascular: Regular rate and rhythm with a normal S1 and S2. No gallops, murmurs, or rubs. Normal PMI, no JVD. No pulse deficits. Respiratory: Lungs have equal breath sounds bilaterally, clear to auscultation and percussion. No rales, rhonchi or wheezes noted. No increased work of breathing, no retractions or nasal flaring. Abdomen/GI: Soft, non-tender, with normal bowel sounds. No distension or tympany. No guarding or rebound. No evidence of tenderness throughout. Back: No spinal tenderness. No costovertebral tenderness. Skin: Warm, dry with normal turgor. Normal color with no rashes, no lesions, and no evidence of cellulitis. MS/ Extremity: Pulses equal, no cyanosis. Neurovascular intact. Full, normal range of motion. Neuro: Awake and alert, GCS 15, oriented to person, place, time, and situation. Cranial nerves II-XII grossly intact. Motor strength 5/5 in all extremities. Sensory grossly intact. Psych: Awake, alert, with orientation to person, place and time. Behavior, mood, and affect are within normal limits 22:53 ECG was reviewed by the Attending Physician. Patient has EKG at 2135, is normal sinus sp4 rhythm first-degree AV block, no ST elevation or depression otherwise normal. Sinus rhythm at rate of 89 Vital Signs: 20:53 BP 142 / 83; Pulse 88; Resp 17; Temp 98.2(O); Pulse Ox 100% on R/A; Weight 55.79 kg; me1 Height 5 ft. 2 in. ; Pain 0/10; 22:00 BP 129 / 61; Pulse 80; Resp 16; Pulse Ox 99% ; 7 23:00 BP 143 / 67; Pulse 78; Resp 20; Pulse Ox 99% ; 7 07/17 00:00 BP 129 / 71; Pulse 78; Resp 23; Pulse Ox 96% ; 7 01:00 BP 154 / 74; Pulse 78; Resp 17; Pulse Ox 97% ; 7 02:00 BP 156 / 70; Pulse 77; Resp 18 S; Pulse Ox 98% on R/A; 7 07/16 20:53 Body Mass Index 22.50 (55.79 kg, 157.48 cm) co1 07/16 20:53 Pain Scale: Adult me1 MDM: 07/16 21:25 Patient medically screened. [facility] 07/17 01:48 Differential Diagnosis: electrolyte abnormality, alcohol intoxication, hypoglycemia, sp4 overdose, volume depletion. Data reviewed: vital signs, nurses notes, lab test result(s), CBC, electrolytes, hepatic panel, urine drug screen. Consideration of Admission/Observation Escalation of care including admission/observation considered. ED course: Repeat Troponin is negative. Patient stable for discharge. 07/16 21:08 Order name: Basic Metabolic Panel; Complete Time: 22:58 [facility] 07/16 21:08 Order name: CBC with Diff; Complete Time: 21:57 [facility] 07/16 21:08 Order name: LFT's; Complete Time: 22:58 [facility] 07/16 21:08 Order name: Magnesium; Complete Time: 22:58 [facility] 07/16 21:08 Order name: NT PRO-BNP; Complete Time: 22:58 [facility] 07/16 21:08 Order name: PT-INR; Complete Time: 22:58 [facility] 07/16 21:08 Order name: Troponin HS; Complete Time: 22:58 [facility] 07/16 21:08 Order name: Urine Drug Screen; Complete Time: 21:57 [facility] 07/17 00:30 Order name: Troponin High Sensitivity; Complete Time: 01:48 [facility] 07/16 21:08 Order name: XRAY Chest (1 view); Complete Time: 22:58 [facility] 07/16 21:08 Order name: EKG; Complete Time: 21:09 [facility] 07/16 21:08 Order name: Cardiac monitoring; Complete Time: 21:39 [facility] 07/16 21:08 Order name: EKG - Nurse/Tech; Complete Time: 21:39 sp4 07/16 21:08 Order name: IV Saline Lock; Complete Time: 21:31 sp4 07/16 21:08 Order name: Labs collected and sent; Complete Time: 21:33 sp4 07/16 21:08 Order name: O2 Per Protocol; Complete Time: :33 sp4 07/16 21:08 Order name: O2 Sat Monitoring; Complete Time: :33 sp4 EC/25 22:53 Rate is 89 beats/min. Rhythm is regular, Normal Sinus Rhythm. QRS Fitzpatrick is Normal. [place] sp4 interval is prolonged. QRS interval is normal. QT interval is normal. No Q waves. T waves are Normal. No ST changes noted. Clinical impression: Normal ECG and No evidence of ischemia. Interpreted by me. Reviewed by me. Administered Medications: 21:46 Drug: NS 0.9% IV 1000 ml IV at 125 ml/hr continuous Route: IV; Rate: 125 ml/hr; Site: [facility] left antecubital; 07/17 04:03 Follow up: Response: No adverse reaction; IV Status: Order to discontinue infusion; IV jw7 Intake: 600ml 02:05 Drug: Ondansetron PO 4 mg PO once Route: PO; jw7 04:03 Follow up: Response: No adverse reaction jw7 Disposition Summary: 07/17/23 01:52 Discharge Ordered Notes: Location: Home sp4 Problem: new sp4 Symptoms: are resolved sp4 Condition: Stable sp4 Diagnosis - Syncope and collapse, cannabis use uncomplicated, intentional cannabis overdose sp4 Followup: sp4 - With: Private Physician - When: 2 - 3 days - Reason: Recheck today's complaints Discharge Instructions: - Discharge Summary Sheet sp4 - Cannabis Use Disorder sp4 Forms: - Patient Portal Instructions sp4 Signatures: Dispatcher [employer] Emeli Stewart RN RN jw7 Leandro Perales MD MD sp4 Vicki Zaidi RN RN me1
--- NOTE | 2023-07-17 01:53 | ER ---
Nurse's Notes [facility] Name: Kinsey Leung Age: 73 yrs Sex: Female : 1950 Arrival Date: 07/16/2023 Time: 20:51 Bed IW9 Private MD: Diagnosis: Syncope and collapse, cannabis use uncomplicated, intentional cannabis overdose Presentation: 07/16 20:53 Chief complaint: EMS states: toned out for chest pain to left upper chest. On arrival me1 patient is drowsy, diaphoretic. Took ibuprofen, 6.25 mg of phenergan and her 2nd CBD gummy of the day. Denied CP to EMS, stating that the medication seems to have helped. HX of 7 heart stents. EMS established a 20 g PIV to LAC. Administered 324 mg of aspirin. Coronavirus screen: Vaccine status: Patient reports receiving the 2nd dose of the covid vaccine. Ebola Screen: No symptoms or risks identified at this time. Initial Sepsis Screen: Does the patient meet any 2 criteria? No. Patient's initial sepsis screen is negative. Does the patient have a suspected source of infection? No. Patient's initial sepsis screen is negative. Risk Assessment: Do you want to hurt yourself or someone else? Patient reports no desire to harm self or others. Onset of symptoms was July 16, 2023 at 19:30. 20:53 Method Of Arrival: EMS: [place] [id number] 20:53 Acuity: ERIK 3 me1 Triage Assessment: 21:07 General: Appears comfortable, well groomed, well developed, well nourished, Behavior is me1 calm, cooperative, appropriate for age, Reports Did have sudden onset of chest pain about 7:30 pm. Took ibupofen, phenergan and a CBD gummy and called EMS. Denies pain on arrival to ER. Pain: Denies pain. Neuro: Level of Consciousness is awake, alert, obeys commands, Oriented to person, place, time, situation, Appropriate for age. Cardiovascular: Reports chest pain, that started at 19:30 in left upper chest and has sense resolved. Capillary refill < 3 seconds Patient's skin is warm and dry. Respiratory: Airway is patent Respiratory effort is even, unlabored, Respiratory pattern is regular, symmetrical. Historical: - Allergies: 20:59 No Known Allergies; me1 - PMHx: 20:59 GERD; High Cholesterol; Hypertension; me1 - PSHx: 20:59 Coronary Angioplasty; me1 - Immunization history:: Adult Immunizations up to date. - Social history:: Smoking status: Patient/guardian denies using tobacco, but has a distant history of tobacco abuse. - Family history:: not pertinent. Screenin:10 [facility] ED Fall Risk Assessment (Adult) History of falling in the last 3 months, me1 including since admission No falls in past 3 months (0 pts) Confusion or Disorientation Yes (5 pts) Intoxicated or Sedated No (0 pts) Impaired Gait Yes (1 pt) Mobility Assist Device Used Yes (1 pt) Altered Elimination No (0 pt) Score/Fall Risk Level 3 or more points = High Risk Oriented to surroundings, Maintained a safe environment, Hourly rounding (assess needs \T\ fall precautionary measures) done, Used ambulatory aids as needed (educated on \T\ assisted with), Used gait belt as appropriate Implemented a Fall Risk Plan of Care, Apply high fall risk patient identification: yellow non skid footwear/ fall signage. Abuse screen: Denies threats or abuse. Nutritional screening: No deficits noted. Tuberculosis screening: No symptoms or risk factors identified. Assessment: 21:10 General: See triage assessment.. me1 07/17 00:00 Reassessment: Patient appears in no apparent distress at this time. No changes from [facility] previously documented assessment. Patient and/or family updated on plan of care and expected duration. Pain level reassessed. Patient is alert, oriented x 3, equal unlabored respirations, skin warm/dry/pink. 01:00 Reassessment: Patient appears in no apparent distress at this time. Patient and/or jw7 family updated on plan of care and expected duration. Pain level reassessed. Patient is alert, oriented x 3, equal unlabored respirations, skin warm/dry/pink. Patient denies pain at this time. Patient states feeling better. Patient states symptoms have improved. 02:00 Reassessment: Patient appears in no apparent distress at this time. No changes from 7 previously documented assessment. Patient and/or family updated on plan of care and expected duration. Pain level reassessed. Patient is alert, oriented x 3, equal unlabored respirations, skin warm/dry/pink. Vital Signs: 07/16 20:53 BP 142 / 83; Pulse 88; Resp 17; Temp 98.2(O); Pulse Ox 100% on R/A; Weight 55.79 kg; me1 Height 5 ft. 2 in. ; Pain 0/10; 22:00 BP 129 / 61; Pulse 80; Resp 16; Pulse Ox 99% ; jj7 23:00 BP 143 / 67; Pulse 78; Resp 20; Pulse Ox 99% ; jj7 07/17 00:00 BP 129 / 71; Pulse 78; Resp 23; Pulse Ox 96% ; jj7 01:00 BP 154 / 74; Pulse 78; Resp 17; Pulse Ox 97% ; jj7 02:00 BP 156 / 70; Pulse 77; Resp 18 S; Pulse Ox 98% on R/A; jw7 07/16 20:53 Body Mass Index 22.50 (55.79 kg, 157.48 cm) me1 07/16 20:53 Pain Scale: Adult [facility] ED Course: 07/16 20:52 Patient arrived in ED. me1 20:58 Leandro Perales MD is Attending Physician. sp4 20:59 Triage completed. me1 21:07 Vicki Zaidi, LARON is Primary Nurse. me1 21:07 Arm band placed on Patient placed in waiting room. me1 21:10 Patient has correct armband on for positive identification. Placed in gown. Bed in low me1 position. Call light in reach. Side rails up X2. Provided Education on: POC. Verbalized understanding. . 21:10 No provider procedures requiring assistance completed. me1 21:10 Maintain EMS IV. Dressing intact. Good blood return noted. Site clean \T\ dry. Gauge \T\ me 1 site: 20g LAC. 21:33 Basic Metabolic Panel Sent. me1 21:33 CBC with Diff Sent. me1 21:33 LFT's Sent. me1 21:33 Magnesium Sent. me1 21:33 NT PRO-BNP Sent. me1 21:33 PT-INR Sent. me1 21:33 Urine Drug Screen Sent. me1 22:26 XRAY Chest (1 view) In Process Unspecified. EDMS 07/17 02:00 IV discontinued, intact, bleeding controlled, No redness/swelling at site. Pressure jw7 dressing applied. Administered Medications: 07/16 21:46 Drug: NS 0.9% IV 1000 ml IV at 125 ml/hr continuous Route: IV; Rate: 125 ml/hr; Site: ne1 left antecubital; 07/17 04:03 Follow up: Response: No adverse reaction; IV Status: Order to discontinue infusion; IV jw7 Intake: 600ml 02:05 Drug: Ondansetron PO 4 mg PO once Route: PO; jw7 04:03 Follow up: Response: No adverse reaction jw7 Medication: 07/16 21:10 VIS not applicable for this client. me1 Intake: 07/17 04:03 IV: 600ml; Total: 600ml. jw7 Outcome: 01:52 Discharge ordered by . spMarlene 02:00 Discharged to home ambulatory, with family, jw7 02:00 Condition: stable 02:00 Discharge instructions given to patient, family, Instructed on discharge instructions, follow up and referral plans. Demonstrated understanding of instructions, follow-up care, 04:05 Patient left the ED. jw7 Signatures: Dispatcher [employer] EDEmeli Roman RN RN jw7 Marjan Joseph RN RN jjLeandro Rivas MD MD sp4 Vicki Zaidi RN RN me1 Corrections: (The following items were deleted from the chart) 07/16 21:10 20:59 General: Appears [place] [id number]
[2023-07-17 04:14] VITALS: TEMP 98.2
[2023-07-17 04:21] VITALS: BP 156/70; O2SAT 98
--- NOTE | 2023-07-19 13:29 | EKG ---
Test Date: 2023-07-16 Test Time: 21:35:59 [place]: MEASUREMENT RESULTS: Intervals: Rate: 89 FL: 236 QRSD: 84 QT: 374 QTc: 455 Yeso: P: 55 FL: 236 QRS: 67 T: 62 INTERPRETIVE STATEMENTS: Sinus rhythm with 1st degree AV block Otherwise normal ECG Compared to ECG 06/23/2016 11:00:09 First degree AV block now present ST (T wave) deviation no longer present Electronically Signed On 07-19-23 13:23:04 HOME HEALTH RN by Tj Segura
== END ==
LOC: ER 20:51
DX: R55 Syncope and collapse (principal); T40.712A Poisoning by cannabis, intentional self-harm, initial encounter; F12.10 Cannabis abuse, uncomplicated; R07.9 Chest pain, unspecified; R11.10 Vomiting, unspecified
CPT/HCPCS: 96361; 93005; 85025; 80048; 36415; 83735; 85610; 80076; 84484; 83880; 80307; 71045; 96360; 99284; J7030